=== PATIENT | male | born 1950 | race Caucasian/White ===

== ENCOUNTER 2022-09-11 10:25 | Outpatient (CLI) | payer MEDICARE, OTHER ==
--- NOTE | 2022-09-11 13:54 | XRAY Report ---
PROCEDURE: Foot 3 View RT INDICATIONS: GANGLION, RIGHT ANKLE AND FOOT TECHNIQUE: 3 views of the foot were acquired. COMPARISON: None. FINDINGS: Bones: No acute fracture or dislocation identified. Severe degenerative changes of the first MTP anabel nt present. Soft tissues: No suspicious soft tissue calcifications. IMPRESSION: No acute bony abnormality. If pain persists with conservative management, consider repeat radiographs in 10-14 days or cross-sectional imaging. Soft tissues are not well evaluated by radiography. Reviewed by: Michael Zacarias MD on 09/11/2022 1:53 PM PDT Approved by: Michael Zacarias MD on 09/11/2022 1:53 PM PDT Station ID: [id number]
== END 2022-09-11 10:26 | disposition home or self-care (01) ==
LOC: DI 10:25
PROVIDERS: ATTEND Internal Medicine
DX: M67.471 Ganglion, right ankle and foot (principal)

== ENCOUNTER 2023-01-29 09:57 | Outpatient (CLI) | payer MEDICARE, OTHER ==
--- NOTE | 2023-01-29 16:08 | XRAY Report ---
PROCEDURE: Foot 3 View LT INDICATIONS: RULE OUT STRESS FRACTURE TECHNIQUE: 3 views of the foot were acquired. COMPARISON: None. FINDINGS: Bones: No fractures or dislocations. No suspicious bony lesions. 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 Soft tissues: No suspicious soft tissue calcifications or masses. IMPRESSION: No acute osseous abnormality. Severe first MTP joint degeneration. Reviewed by: Chandni Duenas MD on 01/29/2023 4:07 PM PST Approved by: Chandni Duenas MD on 01/29/2023 4:07 PM PST Station ID: [id number]
== END 2023-01-29 09:58 | disposition home or self-care (01) ==
LOC: DI 09:57
PROVIDERS: ATTEND Internal Medicine
DX: M72.2 Plantar fascial fibromatosis (principal); M19.072 Primary osteoarthritis, left ankle and foot